=== PATIENT | male | born 1960 | race Caucasian/White ===

== ENCOUNTER 2022-01-12 11:08 | Emergency (ER) | payer OTHER ==
[2022-01-12] MEDS ORDERED: Fluorescein Opthalmic Strip ONE (11:27)
[2022-01-12] MEDS ORDERED: Tetracaine 0.5% PF 4 ML BOT ONE (11:27)
== END 2022-01-12 12:02 | disposition home or self-care (01) ==
LOC: MADERS 11:08
DX: S05.02XA Injury of conjunctiva and corneal abrasion without foreign body, left eye, initial encounter (principal); I10 Essential (primary) hypertension; W22.8XXA Striking against or struck by other objects, initial encounter; Z87.891 Personal history of nicotine dependence
CPT/HCPCS: 99283